=== PATIENT | male | born 1965 | race Caucasian/White ===

== ENCOUNTER 2020-12-29 16:21 | Inpatient (IN) | payer BC, SELFPAY ==
[2020-12-29] VITALS (23 sets, daily range): BP systolic 106–146; BP diastolic 63–86; PULSE 81–106; RESP 18–31; TEMP 36.7–37.6; O2SAT 84–95
--- NOTE | 2020-12-29 16:40 | W.ED.GENAD ---
Discharge Plan Disposition Patient Disposition: [facility] INPATIENT Condition: Fair Discharge Details Clinical Impression: COVID-19, Multifocal pneumonia, Hypoxia, On supplemental oxygen therapy Admit Date/Time: 12/29/20 19:50 Admit Provider: Delicia Cannon Attending Provider: Delicia Cannon Primary Care Provider: Heri Woodward ED Provider: Nicki James Discharge Data Discharge Date/Time-TO BE ENTERED AT DEPARTURE: 12/29/20 20:36 Medical Decision Making 1645 -- 55yo M w/ a h/o Type 2 diabetes, PMR who was diagnosed Covid + 6 days ago and scheduled for MAB infusion tomorrow presents for increasing dyspnea and hypoxia ~85% at home today. O2 sat 91% on RA on arrival. He has scattered wheezing throughout. He is speaking in full sentences and appears in no acute respiratory distress. Consider pneumonia or PE. Will obtain screening labs, EKG, CT chest and give DuoNeb and Solu-Medrol and fluids and reassess. Labs reviewed. White blood cell count 4. Potassium 3.2, will replete. Troponin negative. 1800 -- O2 sat 85% while patient sleeping. There may be an element of sleep apnea, will place on 1 L nasal cannula. 1914 --CT reviewed and noted diffuse multifocal pneumonia but no PE. Patient reassessed and he feels slightly better. Oxygen saturation low 90s on 2 L nasal cannula. As patient is hypoxic at rest and requiring supplemental oxygen in the setting of multifocal pneumonia, will admit for continued monitoring, antiviral treatment, nebs and IV steroids. Case discussed with hospitalist who accepts patient for admission. Discussed with nursing operations supervisor regarding admission Covid testing. As there are limited in-house Covid test and patient is a reported known positive, will reserve in-house test and obtain a send out Covid test. We will also attempt to obtain patient's outpatient positive result. Able to obtain patient's outpatient Covid positive result and copy attached to his chart. Medical Records Medical records reviewed: Yes I reviewed the patient's medical records. Imaging Data Radiologic Study: Radiologist's impression: CTA Chest With Contrast Exam date and time: 12/29/2020 4:59 PM Age: 55 years old Clinical indication: Patient HX: Cough, SOB, R/O pe/pneumonia TECHNIQUE: Imaging protocol: Computed tomographic angiography of the chest with contrast. 3D rendering (Not supervised by radiologist): MIP and/or 3D reconstructed images were created by the technologist. Radiation optimization: All CT scans at this facility use at least one of these dose optimization techniques: automated exposure control; mA and/or kV adjustment per patient size (includes targeted exams where dose is matched to clinical indication); or iterative reconstruction. Contrast material: OMNIPAQUE 350; Contrast volume: 99 ml; Contrast route: INTRAVENOUS (IV); COMPARISON: No relevant prior studies available. FINDINGS: Pulmonary arteries: Normal. No pulmonary emboli. Aorta: Unremarkable. No aortic aneurysm. No aortic dissection. Lungs: There are coarse scattered bilateral ground-glass infiltrates. Pleural spaces: Unremarkable. No pneumothorax. No pleural effusion. Heart: Unremarkable. No cardiomegaly. No pericardial effusion. Lymph nodes: Unremarkable. No enlarged lymph nodes. Liver: Fatty liver. Bones/joints: Unremarkable. No acute fracture. Soft tissues: Unremarkable. Other findings: Respiratory motion noted. IMPRESSION: 1. No evidence for pulmonary embolus. 2. Bilateral airspace disease. Pattern could be consistent with COVID-19. Clinical and laboratory correlation recommended. Lab Data Lab results reviewed: Yes I reviewed the patient's lab results. Labs: Laboratory Tests Range/Units 12/29/20 12/29/20 17:00 17:00 WBC (4.4-10.8) 10^3/uL 4.53 RBC (4.36-5.78) 10^6/uL 5.46 Hgb (13.5-17.5) g/dL 16.5 Hct (40.0-50.0) % 46.9 MCV (80-95) fL 85.9 MCH (27.0-33.0) pg 30.2 MCHC (32.0-36.0) % 35.2 RDW (11.8-14.1) % 12.2 Plt Count (130-400) 10^3/uL 126 L MPV (8.0-11.0) fL 10.5 Immature Gran % 0.0 Neutrophils % 66.0 Lymphocytes % 22.0 Atypical Lymphs % 8 Monocytes % 4.0 Eosinophils % 0.0 Basophils % 0.0 Nucleated RBC % % 0 Absolute Neutrophils (1.2-6.7) 10^3/uL 2.99 Absolute Lymphocytes (1.2-3.4) 10^3/uL 1.36 Absolute Monocytes (0.1-0.8) 10^3/uL 0.18 Absolute Eosinophils (0.0-0.7) 10^3/uL 0.00 Absolute Basophils (0.0-0.2) 10^3/uL 0.00 RBC Morphology Normal Sodium (136-145) mmol/L 130 L Potassium (3.5-5.1) mmol/L 3.2 L Chloride (98-107) mmol/L 94 L Carbon Dioxide (21.0-32.0) mmol/L 27.2 Anion Gap (3-11) mmol/L 8.8 BUN (7-18) mg/dL 10 Creatinine (0.70-1.30) mg/dL 0.9 Estimated GFR/1.73 m2 (mL/min/1.73m2) >= 60.00 Glucose (74-106) mg/dL 187 H Calcium (8.5-10.1) mg/dL 8.0 L Magnesium (1.8-2.4) mg/dL 1.9 Total Bilirubin (0.2-1.0) mg/dL 1.1 H AST (15-37) U/L 52 H ALT (16-63) U/L 49 Alkaline Phosphatase (46-116) U/L 59 Troponin I (<0.06) ng/mL < 0.05 Total Protein (6.4-8.2) g/dL 7.0 Albumin (3.4-5.0) g/dL 3.1 L ECG Data Interpretation: rate of 98, sinus, no acute ST elevation or depression. AR 169. QTc 451. HPI General Mode of arrival: ambulatory. Date/Time Provider Initiated Documentation: 12/29/20 16:23. Limitations to Documentation: no limitations. Information obtained by: patient. HPI Narrative: Pt is a 55yo M w/ a h/o diabetes and PMR who tested + for Covid 19 6 days ago and is scheduled for a MAB infusion outpatient tomorrow who presents to the ED for increasing shortness of breath and hypoxia 82-88% that has been worse with exertion today. He also admits to cough, fatigue, loss of sense of smell and taste and decreased appetite. Pt states he is not vaccinated for Covid but is interesterd in getting the vaccine once his infection resolves. Related Data Home Medications Medication Instructions Recorded Confirmed acetaminophen [Tylenol Ex Str 1,000 mg PO PRN PRN 12/29/20 12/29/20 Rapid Release] metformin 1,000 mg PO BID 12/29/20 12/29/20 prednisone 20 mg PO DAILY 12/29/20 12/29/20 simvastatin mg DAILY 12/29/20 Allergies Allergy/AdvReac Type Severity Reaction Status Date / Time chocolate flavor Allergy Swelling/Ed Unverified 12/29/20 16:30 janel General Stated Complaint: RespSymp BAO: 3 Review of Systems All systems reviewed & are unremarkable except as noted in HPI and below Constitutional Constitutional: Reports as per HPI, Denies chills and Denies fever(s) Eyes Eyes: Denies blurry vision ENT Ears, Nose, Mouth, and Throat: Denies dizziness, Denies sore throat and Denies throat swelling Cardiovascular Cardiovascular: Denies chest pain and Reports dyspnea Respiratory Respiratory: Reports cough and Reports dyspnea Gastrointestinal Gastrointestinal: Denies abdominal pain, Denies diarrhea and Denies vomiting Genitourinary Genitourinary: Denies hematuria and Denies dysuria Musculoskeletal Musculoskeletal: Denies back pain and Denies numbness Integumentary/Breasts Skin/Breast: Denies lesions and Denies rash Neurologic Neurologic: Denies dizziness, Denies localized weakness and Denies numbness Allergic/Immunologic Allergic/Immunologic: Denies throat swelling [facility] Active Problem List (Updated 12/29/20 @ 23:48 by Delicia Cannon MD) Chronic adrenal insufficiency (Acute) Pneumonia due to COVID-19 virus (Acute) Discharge planning issues (Acute) DVT prophylaxis (Acute) Hyponatremia (Acute) Hypokalemia (Acute) COVID-19 (Acute) Multifocal pneumonia (Acute) Hypoxia (Acute) On supplemental oxygen therapy (Acute) Medical History (Updated 12/29/20 @ 23:48 by Delicia Cannon MD) Obesity (BMI 30-39.9) Polymyalgia rheumatica Steroid dependent Type 2 diabetes mellitus Surgical History (Updated 12/29/20 @ 23:48 by Delicia Cannon MD) S/P right rotator cuff repair S/P tonsillectomy Social History (Updated 12/29/20 @ 23:49 by Delicia Cannon MD) Smoking/Tobacco Use Status: Current every day Tobacco Type: smokeless tobacco Smoking risk assessment performed?: Yes Alcohol Intake: current Alcohol Intake frequency: holidays/special occasions only Drug use: Rarely Substance use type: marijuana Do you feel safe at home: Yes Do you feel safe in your relationship?: Yes Exam Const General: cooperative and no acute distress Nutritional Appearance: obese morbidly obese [facility] Head: normal to inspection Face and sinus: normal facial exam Eyes General: appearance normal, both eyes and all related structures Pupils: PERRL EOM: EOM intact bilaterally Neck Neck: normal visual inspection and No submandibular swelling Lymphatic: no lymphadenopathy noted Chest Chest: normal inspection of the chest and no tenderness Resp Effort & Inspection: normal respiratory effort and able to speak in complete sentences Auscultation: wheezes scattered wheezes Cardio Rate: regular rate Rhythm: regular rhythm GI Inspection: normal to inspection Palpation: soft, not firm, not rigid and nontender Auscultation: normal bowel sounds Skin General skin exam: no rashes or lesions noted Neuro General: patient alert, patient awake and patient oriented x3 Cognition: normal cognition Speech: speech normal Motor: muscle tone normal throughout Sensory Exam: no sensory deficits noted Extrem General: normal to inspection, full ROM, capillary refill normal, no calf tenderness bilaterally and no edema Psych Appearance: grossly normal Mental Status: mental status grossly normal Speech and Movement: speech and movement normal Affect: normal affect Course Vital Signs Vital signs: Vital Signs Temperature 98.1 F 12/29/20 16:30 Pulse 98 H 12/29/20 16:30 Respiratory Rate 18 12/29/20 16:30 Blood Pressure 146/86 H 12/29/20 16:30 Pulse Oximetry 91 L 12/29/20 16:30 Temperature 98.1 F 12/29/20 16:30 Temperature Source Skin 12/29/20 16:30 Pulse 98 H 12/29/20 16:30 Respiratory Rate 18 12/29/20 16:30 Blood Pressure 146/86 H 12/29/20 16:30 Blood Pressure Position Sitting 12/29/20 16:30 Pulse Oximetry 91 L 12/29/20 16:30 Oxygen Delivery Method Room Air 12/29/20 16:30 Oxygen Flow Rate 0 12/29/20 16:30 Pain Level 10 12/29/20 16:30 Comment 12/29/20 16:30
--- NOTE | 2020-12-29 16:45 | DI.CT_ITS ---
Exam(s) CT CHEST PE CTA EXAM: CT CHEST PE CTA CLINICAL HISTORY: cough, sob, r/o PE/pneumonia. TECHNIQUE: Imaging Protocol: Axial CT angiography was performed with multi-slice acquisition and mu lti-planar and/or 3D reconstructions. CONTRAST MATERIAL: Intravenous: Omnipaque 350 Contrast volume:structured data in ml COMPARISON: No exams were available for comparison FINDINGS: CT angiography of the chest was performed with intravenous infusion of 100 cc of Omnipaque 350. There are bilateral multi focal pulmonary ground-glass and consolidative opacities. Findings are con sistent with acute multifocal pneumonia period. No pleural effusion. Tracheobronchial tree appears i ntact. No evidence of pulmonary embolic disease. Thoracic aorta is of normal diameter, no thoracic aortic an eurysm or dissection, major branch vessels appear intact. No mediastinal or hilar adenopathy. Images obtained through the upper abdomen show hepatic steatosis. There is no focal hepatic lesion. Unremarkable appearance of visualized portions of spleen pancreas adrenals, left kidney. IMPRESSION: Multifocal bilateral intrapulmonary consolidative ground-glass opacities. Findings are consistent ac [place] multifocal pneumonia. No evidence of pulmonary embolic disease. RADIATION DOSE DELIVERED: 732.61mGy.cm Total DLP 732.61mGy.cm Total DLP CTDIvol DATA REPOSITORY: All CT scans at this facility are submitted to the National Radiology Data Registry (NRDR) Dose Index Registry (DIR) with the [employer] (A[employer]). RADIATION OPTIMIZATION: All CT scans at this facility use at least one of these dose optimization te chniques: automated exposure control; mA and/or kV adjustment per patient size (includes targeted exa ms where dose is matched to clinical indication); or iterative reconstruction.
[2020-12-29 17:17] LABS: HCT 46.9 % (40.0-50.0); HGB 16.5 g/dL (13.5-17.5); MCH 30.2 pg (27.0-33.0); MCHC 35.2 % (32.0-36.0); MCV 85.9 fL (80-95); MPV 10.5 fL (8.0-11.0); Nucleated RBC 0 %; Platelet Count 126 10^3/uL (130-400); RBC 5.46 10^6/uL (4.36-5.78); RDW 12.2 % (11.8-14.1); RDW-SD 38.5 fL; WBC 4.53 10^3/uL (4.4-10.8)
[2020-12-29] MEDS: methylPREDNISolone SUCC 125 MG VIAL IVP (17:20)
[2020-12-29] MEDS: Albuterol/Ipratropium 3 ML UPD VIAL UPD (17:20)
[2020-12-29] MEDS: Normal Saline 1,000 ML 1000 ML IV (17:21)
[2020-12-29 17:34] LABS: ALT 49 U/L (16-63); AST 52 U/L (15-37); Albumin 3.1 g/dL (3.4-5.0); Alkaline Phosphatase 59 U/L (46-116); Anion Gap 8.8 mmol/L (3-11); BUN 10 mg/dL (7-18); Bilirubin, Total 1.1 mg/dL (0.2-1.0); CO2 27.2 mmol/L (21.0-32.0); CREATININE 0.9 mg/dL (0.70-1.30); Chloride 94 mmol/L (98-107); Glucose 187 mg/dL (74-106); Magnesium 1.9 mg/dL (1.8-2.4); Potassium 3.2 mmol/L (3.5-5.1); Sodium 130 mmol/L (136-145)
[2020-12-29 17:38] LABS: Absolute Lymphocyte Count 1.36 10^3/uL (1.2-3.4); Absolute Neutrophil Count 2.99 10^3/uL (1.2-6.7); Atypical Lymphocytes % 8
[2020-12-29 17:39] LABS: Absolute Monocyte Count 0.18 10^3/uL (0.1-0.8); Diff Comment Manual Differential; RBC Morphology Normal; Troponin I < 0.05 ng/mL (<0.06)
--- NOTE | 2020-12-29 17:45 | RT.EKG_ITS ---
APPROVED REPORT Exam: Resting ECG Reason for Exam: shortness of breath Patient Location: E HR:98 bpm ECG Measurements Heart Rate 98 AXIS WY 169 P 44 QRSd 105 QRS -4 QT 354 T 5 QTc 451 Conclusion Sinus rhythm...normal P axis, V-rate 60- 99
--- NOTE | 2020-12-29 17:48 | NUR.NOTE ---
Pt completed HHN tx. Reports breathing still hurts O2 sat noted 94% post treatment, lung sounds diminished throughout, deep breathing causes dry cough in patient. NS bolus continues to infuse, VSS, NAD noted. Nursing Note:
[2020-12-29] MEDS: Potassium Chloride 20 MEQ TABCR 40 MEQ PO (17:54)
[2020-12-29] MEDS: Omnipaque 350 MG/ML 100 ML BTL IV (17:58)
[2020-12-29] MEDS: Normal Saline Flush 10 ML SYR IVP ×2 (18:02→21:11)
--- NOTE | 2020-12-29 18:20 | NUR.NOTE ---
Oxygen inititated @ 2l/m via NC d/t O2 sats remaining in high 80's, dip to 84-85% when sleeping. equipment monitor phototypesetting applied and EKG done per order. Pt taken to CT via stretcher, O2 maintained, NS bolus complete, to CT with tech, NAD noted.Nursing Note:
--- NOTE | 2020-12-29 18:59 | NUR.NOTE ---
Pt return from CT, O2 & monitors maintained, no change in complaint. Pt educated on turning to side to facilitate breathing, pt verbalized understanding, call woods within reach.Nursing Note:
--- NOTE | 2020-12-29 19:20 | DI.VRAD_ITS ---
PROCEDURE INFORMATION: Exam: CTA Chest With Contrast Exam date and time: 12/29/2020 4:59 PM Age: 55 years old Clinical indication: Patient HX: Cough, SOB, R/O pe/pneumonia TECHNIQUE: Imaging protocol: Computed tomographic angiography of the chest with contrast. 3D rendering (Not supervised by radiologist): MIP and/or 3D reconstructed images were created by the technologist. Radiation optimization: All CT scans at this facility use at least one of these dose optimization techniques: automated exposure control; mA and/or kV adjustment per patient size (includes targeted exams where dose is matched to clinical indication); or iterative reconstruction. Contrast material: OMNIPAQUE 350; Contrast volume: 99 ml; Contrast route: INTRAVENOUS (IV); COMPARISON: No relevant prior studies available. FINDINGS: Pulmonary arteries: Normal. No pulmonary emboli. Aorta: Unremarkable. No aortic aneurysm. No aortic dissection. Lungs: There are coarse scattered bilateral ground-glass infiltrates. Pleural spaces: Unremarkable. No pneumothorax. No pleural effusion. Heart: Unremarkable. No cardiomegaly. No pericardial effusion. Lymph nodes: Unremarkable. No enlarged lymph nodes. Liver: Fatty liver. Bones/joints: Unremarkable. No acute fracture. Soft tissues: Unremarkable. Other findings: Respiratory motion noted. IMPRESSION: 1. No evidence for pulmonary embolus. 2. Bilateral airspace disease. Pattern could be consistent with COVID-19. Clinical and laboratory correlation recommended. Dictated and Authenticated by: Dominique Cheng MD. Ordering:KAILA Caceres MD
[2020-12-29] MEDS: ACETAMINOPHEN 1,000 MG/100 ML BTL 400 MG IVPB (20:00)
[2020-12-29 20:10] LABS: C-Reactive Protein 3.59 mg/dL (0.0-0.3)
[2020-12-29 20:39] LABS: Procalcitonin < 0.1 ng/mL
[2020-12-29] MEDS: REMDESIVIR 200 MG in Normal Saline 250 ML 250 MG IVPB (21:10)
[2020-12-29] MEDS: Atorvastatin 40 MG TAB PO (21:30)
[2020-12-29] MEDS: Melatonin 3 MG TAB PO (21:30)
[2020-12-29] MEDS: Famotidine 20 MG TAB PO (21:31)
[2020-12-29] MEDS: Ascorbic Acid 500 MG TAB 1000 MG PO (21:31)
[2020-12-29] MEDS: Enoxaparin 40 MG/0.4 ML SYR SC (21:32)
--- NOTE | 2020-12-29 22:01 | W.PM.HP.N ---
Date of service: 12/29/20 Time of Service: 22:01 Assessment and Plan Assessment and plan (1) Pneumonia due to COVID-19 virus: Status: Acute Assessment and plan: In an unvaccinated individual. With hypoxia. PE ruled out. Superimposed bacterial process is also ruled out with a negative procalcitonin. The patient was initiated on remdesivir and received methylprednisolone in the ED. Will convert this to dexamethasone. IS/acapella. Antitussives, prn albuterol inh. Supplement vitamins C, D, zinc. On Statin. Pepcid. Encourage proning/laying on the side. Predicted in-hospital mortality rate 9.1-9.9% (2) Hypoxia: Status: Acute Assessment and plan: As above (3) Hypokalemia: Status: Acute Assessment and plan: Replete. (4) Hyponatremia: Status: Acute Assessment and plan: Possibly due to acute on chronic adrenal insufficiency. The patient is now on systemic steroids at higher dose than his baseline, which should take care of it. (5) Type 2 diabetes mellitus: Assessment and plan: Anticipate steroid-induced hyperglycemia. Cover with SSI. (6) Chronic adrenal insufficiency: Status: Acute Assessment and plan: As above (7) DVT prophylaxis: Status: Acute Assessment and plan: SC lovenox (8) Discharge planning issues: Status: Acute Assessment and plan: Full code as per my discussion with the patient. Admit to [facility] with tele and continuous pulse ox monitor. History of Present Illness History of Present Illness Chief Complaint: Shortness of breath Narrative: Mr Moore is a 55 year old obese male with PMHx of NIDDM2, PMR on steroids, obesity with BMI of 36.5, who was unvaccinated against COVID-19 and was diagnosed with COVID-19 6 days ago who presented to [facility] ED today with complaints of shortness of breath at home in addition to body aches. He has a pulse ox meter at home, and his O2 sats were 83% at rest today. He was desaturating to the 80s on RA in the ED with talking or when asleep. He stated that he does not have JOHANNA. O2 sats improved to the 90s on 2L of O2. Hospitalist admission was requested. The patient states that at home, he has not had fevers/chills/runny nose/sore throat/chest pain/n/v/diarrhea. He endorses body aches like those of his PMR, cough productive of a small amount of yellowish sputum. SOB happened at rest and with activity. He states he is not vaccinated because he does not trust anyone having to do with the vaccines. He could not give me a more specific explanation than that. We discussed that J&J vaccine was more traditional, if that was his concern, and he did state he would be open to getting it. We discussed how he would need to wait 3 weeks from the moment of recovery prior to getting vaccinated. Review of Systems All systems reviewed & are unremarkable except as noted in HPI and below [facility] Active Problem List (Updated 12/29/20 @ 23:48 by Delicia Cannon MD) Chronic adrenal insufficiency (Acute) Pneumonia due to COVID-19 virus (Acute) Discharge planning issues (Acute) DVT prophylaxis (Acute) Hyponatremia (Acute) Hypokalemia (Acute) COVID-19 (Acute) Multifocal pneumonia (Acute) Hypoxia (Acute) On supplemental oxygen therapy (Acute) Medical History (Updated 12/29/20 @ 23:48 by Delicia Cannon MD) Obesity (BMI 30-39.9) Polymyalgia rheumatica Steroid dependent Type 2 diabetes mellitus Surgical History (Updated 12/29/20 @ 23:48 by Delicia Cannon MD) S/P right rotator cuff repair S/P tonsillectomy Social History (Updated 12/29/20 @ 23:49 by Delicia Cannon MD) Smoking/Tobacco Use Status: Current every day Tobacco Type: smokeless tobacco Smoking risk assessment performed?: Yes Alcohol Intake: current Alcohol Intake frequency: holidays/special occasions only Drug use: Rarely Substance use type: marijuana Do you feel safe at home: Yes Do you feel safe in your relationship?: Yes Meds Allergies and Home Medications Allergies Allergy/AdvReac Type Severity Reaction Status Date / Time chocolate flavor Allergy Swelling/Ed Unverified 12/29/20 16:30 janel Home Medications Medication Instructions Recorded Confirmed Type acetaminophen [Tylenol Ex Str 1,000 mg PO PRN PRN 12/29/20 12/29/20 History Rapid Release] metformin 1,000 mg PO BID 12/29/20 12/29/20 History prednisone 20 mg PO DAILY 12/29/20 12/29/20 History simvastatin mg DAILY 12/29/20 History Exam Narrative Exam Narrative: General: Pleasant Obese male, who is laying on his back in bed, A&Ox3, no dyspnea/tachypnea/cyanosis while on 2L of O2 during my exam Neurological: A&Ox3, no focal deficits Psychiatric: Appropriate speech pattern/content Skin: Visible skin, including on B feet, intact HEENT: Atraumatic, normocephalic, EOMI, MMM, clear oropharynx, no submandibular or cervical lymphadenopathy, no goiter or JVD Cardiovascular: RRR, no m/r/g Lungs: CTAB Gastrointestinal: soft, nontender, nondistended Genitourinary: deferred Extremities: no edema/clubbing/cyanosis BLEs, 2+ pedal pulse BLEs, no lesions on B feet Results Imaging Additional studies: CTA chest: 1. No evidence for pulmonary embolus. 2. Bilateral airspace disease. Pattern could be consistent with COVID-19. Clinical and laboratory correlation recommended. EKG: HR 97, NSR, no acute ischemia, no priors for comparison Labs Result diagrams: 12/29/20 17:00 12/29/20 17:00 Labs: Laboratory Results - last 24 hr 12/29/20 12/29/20 12/29/20 17:00 17:00 17:00 WBC 4.53 RBC 5.46 Hgb 16.5 Hct 46.9 MCV 85.9 MCH 30.2 MCHC 35.2 RDW 12.2 Plt Count 126 L MPV 10.5 Immature Gran % 0.0 Neutrophils % 66.0 Lymphocytes % 22.0 Atypical Lymphs % 8 Monocytes % 4.0 Eosinophils % 0.0 Basophils % 0.0 Nucleated RBC % 0 Absolute Neutrophils 2.99 Absolute Lymphocytes 1.36 Absolute Monocytes 0.18 Absolute Eosinophils 0.00 Absolute Basophils 0.00 RBC Morphology Normal Sodium 130 L Potassium 3.2 L Chloride 94 L Carbon Dioxide 27.2 Anion Gap 8.8 BUN 10 Creatinine 0.9 Estimated GFR/1.73 m2 >= 60.00 Glucose 187 H Calcium 8.0 L Magnesium 1.9 Total Bilirubin 1.1 H AST 52 H ALT 49 Alkaline Phosphatase 59 Troponin I < 0.05 C-Reactive Protein 3.59 H Total Protein 7.0 Albumin 3.1 L Procalcitonin < 0.1 Last Vital Signs Temp 37.1 C 12/29/20 21:19 Pulse 81 12/29/20 21:19 Resp 18 12/29/20 21:19 BP 113/72 12/29/20 21:19 Pulse Ox 95 12/29/20 21:19
[2020-12-29] MEDS: Insulin Aspart 100 UNITS/ML UNIT SC (22:36)
[2020-12-30] VITALS (14 sets, daily range): BP systolic 104–139; BP diastolic 63–88; PULSE 64–76; RESP 17–19; TEMP 36.2–37.1; O2SAT 90–95
[2020-12-30 07:40] LABS: HCT 46.6 % (40.0-50.0); HGB 16.2 g/dL (13.5-17.5); MCH 30.5 pg (27.0-33.0); MCHC 34.8 % (32.0-36.0); MCV 87.8 fL (80-95); MPV 10.6 fL (8.0-11.0); Nucleated RBC 0 %; Platelet Count 122 10^3/uL (130-400); RBC 5.31 10^6/uL (4.36-5.78); RDW 12.1 % (11.8-14.1); WBC 3.27 10^3/uL (4.4-10.8)
[2020-12-30 07:50] LABS: Prothrombin Time 10.4 sec (9.3-11.0)
[2020-12-30 07:55] LABS: Absolute Lymphocyte Count 0.82 10^3/uL (1.2-3.4); Absolute Monocyte Count 0.07 10^3/uL (0.1-0.8); Absolute Neutrophil Count 2.39 10^3/uL (1.2-6.7); Atypical Lymphocytes % 14; Bands % 2; Diff Comment Manual Differential; RBC Morphology Normal
[2020-12-30 08:02] LABS: ALT 53 U/L (16-63); AST 52 U/L (15-37); Alkaline Phosphatase 55 U/L (46-116); Anion Gap 9.5 mmol/L (3-11); BUN 11 mg/dL (7-18); Bilirubin, Direct 0.3 mg/dL (0.0-0.2); Bilirubin, Total 0.8 mg/dL (0.2-1.0); C-Reactive Protein 4.38 mg/dL (0.0-0.3); CO2 26.5 mmol/L (21.0-32.0); CREATININE 0.7 mg/dL (0.70-1.30); Calcium 8.2 mg/dL (8.5-10.1); Chloride 101 mmol/L (98-107); Creatine Kinase 131 U/L (39-308); Glucose 242 mg/dL (74-106); Magnesium 2.4 mg/dL (1.8-2.4); Potassium 3.5 mmol/L (3.5-5.1); Sodium 137 mmol/L (136-145); Total Protein 6.9 g/dL (6.4-8.2)
[2020-12-30 08:04] LABS: Hemoglobin A1C 8.8 % (<5.7)
[2020-12-30 08:09] LABS: D-Dimer 688 ng/mlFEU (<500)
[2020-12-30] MEDS: Ascorbic Acid 500 MG TAB 1000 MG PO ×2 (08:45→22:01)
[2020-12-30] MEDS: Insulin Aspart 100 UNITS/ML UNIT SC (08:46)
[2020-12-30] MEDS: Cholecalciferol (Vitamin D3) 1,000 UNIT TAB 2000 UNITS PO (08:46)
[2020-12-30] MEDS: Zinc Sulfate 220 MG TAB PO (08:46)
[2020-12-30] MEDS: Dexamethasone 10 MG/ML VIAL 6 MG IVP (08:46)
[2020-12-30] MEDS: Famotidine 20 MG TAB PO ×2 (08:46→22:01)
[2020-12-30] MEDS: guaiFENesin 600 MG TABCR PO ×2 (08:46→22:00)
[2020-12-30] MEDS: Normal Saline Flush 10 ML SYR IVP (08:47)
[2020-12-30 08:49] LABS: Ferritin > 2000 ng/mL (26-388)
--- NOTE | 2020-12-30 10:19 | INITIAL_ITS ---
- If Service Date Differs Date of service: 12/30/20 Time of Service: 10:19 Care Management Initial Assess REASON FOR HOSPITALIZATION:: Covid-19 Pneumonia with Hypoxia PAST MEDICAL HISTORY/PAST SURGICAL HISTORY:: Active Problem List (Updated 12/29/20 @ 23:48 by Delicia Cannon MD). Chronic adrenal insufficiency (Acute). Pneumonia due to COVID-19 virus (Acute). Discharge planning issues (Acute). DVT prophylaxis (Acute). Hyponatremia (Acute). Hypokalemia (Acute). COVID-19 (Acute). Multifocal pneumonia (Acute). Hypoxia (Acute). On supplemental oxygen therapy (Acute). Medical History (Updated 12/29/20 @ 23:48 by Delicia Cannon MD). Obesity (BMI 30-39.9). Polymyalgia rheumatica. Steroid dependent. Type 2 diabetes mellitus. Surgical History (Updated 12/29/20 @ 23:48 by Delicia Cannon MD). S/P right rotator cuff repair. S/P tonsillectomy PREVIOUS FUNCTIONAL STATUS/SOCIAL/FAMILY SUPPORTS:: Donn lives in [place] with his Ligia. CURRENT FUNCTIONAL STATUS:: CM tried to reach Donn by phone today due because of covid restrictions, however his phone was consistantly busy. Per nursing, Donn continues to be closely monitored. He continues to have SOB and a non productive cough. His O2 Sat is 91% 3L NC. Nursing is also going to set him up with a working phone. ADVANCE DIRECTIVES:: None on file Has patient been provided with info about the portal/API?: Yes Did the patient sign up for the portal?: No CODE STATUS:: Full Code INSURANCE COVERAGE / FINANCIAL ISSUES:: [employer] CURRENT HOME/COMMUNITY SERVICES/EQUIPMENT:: None PRIMARY CARE PHYSICIAN:: Heri Woodward PATIENT/FAMILY EDUCATION NEEDS:: Review discharge instructions, limitations and plan to follow up with community providers. ask me three. TRANSPORTATION:: Via private vehicle with family. PLAN:: Anticipate Donn will be discharged home with no new services via private vehicle with family when medically cleared by M.Maycol. RT will continue to assess his need for home O2. Will follow up with community providers and discharge plan of care as prescribed.
[2020-12-30] MEDS: Insulin Aspart 300 UNITS/3 ML PEN SC ×3 (12:21→22:22)
--- NOTE | 2020-12-30 19:54 | W.PM.PROGNOT ---
Date of Service Date of service: 12/30/20 Time of Service: 17:54 Assessment and Plan Assessment and plan (1) Pneumonia due to COVID-19 virus: Status: Acute Assessment and plan: In an unvaccinated individual. With hypoxia. PE ruled out. Superimposed bacterial process is also ruled out with a negative procalcitonin. The patient was initiated on remdesivir and received methylprednisolone in the ED. Will convert this to dexamethasone. IS/acapella. Antitussives, prn albuterol inh. Supplement vitamins C, D, zinc. On Statin. Pepcid. Encourage proning/laying on the side. Predicted in-hospital mortality rate 9.1-9.9% Now on 3L with O2 saturations of 89-91%. He doesn't note SOA with ambulating in the room. (2) Hypoxia: Status: Acute Assessment and plan: As above (3) Hypokalemia: Status: Acute Assessment and plan: Replete. Now 3.5. (4) Hyponatremia: Status: Acute Assessment and plan: Possibly due to acute on chronic adrenal insufficiency. The patient is now on systemic steroids at higher dose than his baseline, which should take care of it. Na now 137. (5) Type 2 diabetes mellitus: Assessment and plan: Anticipated steroid-induced hyperglycemia. Glucose 252, 243. Cover with SSI. (6) Chronic adrenal insufficiency: Status: Acute Assessment and plan: As above (7) DVT prophylaxis: Status: Acute Assessment and plan: SC lovenox (8) Discharge planning issues: Status: Acute Assessment and plan: Full code per pt. Admitted to [facility] with tele and continuous pulse ox monitor. Objective Last Vital Signs Temp 36.5 C 12/30/20 12:19 Pulse 75 12/30/20 15:30 Resp 19 12/30/20 12:19 BP 126/86 12/30/20 12:19 Pulse Ox 91 L 12/30/20 16:30 Laboratory Results - last 24 hr 12/29/20 12/29/20 12/30/20 17:00 17:00 06:45 WBC RBC Hgb Hct MCV MCH MCHC RDW Plt Count MPV Immature Gran % Neutrophils % Band Neutrophils % Lymphocytes % Atypical Lymphs % Monocytes % Eosinophils % Basophils % Nucleated RBC % Absolute Neutrophils Absolute Lymphocytes Absolute Monocytes Absolute Eosinophils Absolute Basophils RBC Morphology PT INR D-Dimer Sodium Potassium Chloride Carbon Dioxide Anion Gap BUN Creatinine Estimated GFR/1.73 m2 Glucose Hemoglobin A1c 8.8 H Calcium Magnesium Ferritin Total Bilirubin Conjugated Bilirubin AST ALT Alkaline Phosphatase Creatine Kinase C-Reactive Protein 3.59 H Total Protein Albumin Procalcitonin < 0.1 12/30/20 12/30/20 12/30/20 06:45 06:45 06:45 WBC 3.27 L RBC 5.31 Hgb 16.2 Hct 46.6 MCV 87.8 MCH 30.5 MCHC 34.8 RDW 12.1 Plt Count 122 L MPV 10.6 Immature Gran % 0.0 Neutrophils % 71.0 Band Neutrophils % 2 Lymphocytes % 11.0 Atypical Lymphs % 14 Monocytes % 2.0 Eosinophils % 0.0 Basophils % 0.0 Nucleated RBC % 0 Absolute Neutrophils 2.39 Absolute Lymphocytes 0.82 L Absolute Monocytes 0.07 L Absolute Eosinophils 0.00 Absolute Basophils 0.00 RBC Morphology Normal PT 10.4 INR 1.0 D-Dimer 688 H Sodium 137 Potassium 3.5 Chloride 101 Carbon Dioxide 26.5 Anion Gap 9.5 BUN 11 Creatinine 0.7 Estimated GFR/1.73 m2 >= 60.00 Glucose 242 H Hemoglobin A1c Calcium 8.2 L Magnesium 2.4 Ferritin > 2000 H Total Bilirubin 0.8 Conjugated Bilirubin 0.3 H AST 52 H ALT 53 Alkaline Phosphatase 55 Creatine Kinase 131 C-Reactive Protein 4.38 H Total Protein 6.9 Albumin 3.0 L Procalcitonin
[2020-12-30] MEDS: Melatonin 3 MG TAB PO (22:00)
[2020-12-30] MEDS: Atorvastatin 40 MG TAB PO (22:01)
[2020-12-30] MEDS: Enoxaparin 40 MG/0.4 ML SYR SC (22:02)
[2020-12-31] VITALS (10 sets, daily range): BP systolic 100–128; BP diastolic 60–79; PULSE 50–82; RESP 16–24; TEMP 36.6–37.3; O2SAT 89–97
[2020-12-31 02:01] LABS: Vitamin D 25 Total 9.3 ng/mL (30-100)
[2020-12-31] MEDS: Insulin Aspart 300 UNITS/3 ML PEN SC ×4 (07:51→21:26)
[2020-12-31] MEDS: Dexamethasone 10 MG/ML VIAL 6 MG IVP (07:53)
[2020-12-31] MEDS: Zinc Sulfate 220 MG TAB PO (07:53)
[2020-12-31] MEDS: guaiFENesin 600 MG TABCR PO ×2 (07:53→21:25)
[2020-12-31] MEDS: Ascorbic Acid 500 MG TAB 1000 MG PO ×2 (07:53→21:24)
[2020-12-31] MEDS: Cholecalciferol (Vitamin D3) 1,000 UNIT TAB 2000 UNITS PO (07:53)
[2020-12-31] MEDS: Famotidine 20 MG TAB PO ×2 (07:53→21:24)
--- NOTE | 2020-12-31 11:06 | PGE_ITS ---
Date of Service Date of service: 12/31/20 Time of Service: 11:07 Assessment and Plan Assessment and plan (1) Pneumonia due to COVID-19 virus: Status: Acute Assessment and plan: In an unvaccinated individual. With hypoxia. PE ruled out. Superimposed bacterial process is also ruled out with a negative procalcitonin. The patient was initiated on remdesivir and received methylprednisolone in the ED. Will convert this to dexamethasone. IS/acapella. Antitussives, prn albuterol inh. Supplement vitamins C, D, zinc. On Statin. Pepcid. Encourage proning/laying on the side. Predicted in-hospital mortality rate 9.1-9.9% Now on 3L with O2 saturations of 89-91%. He doesn't note SOA with ambulating in the room. (2) Hypoxia: Status: Acute Assessment and plan: As above (3) Hypokalemia: Status: Acute Assessment and plan: Replete. Now 3.5. (4) Hyponatremia: Status: Acute Assessment and plan: Possibly due to acute on chronic adrenal insufficiency. The patient is now on systemic steroids at higher dose than his baseline, which should take care of it. Na now 137. (5) Type 2 diabetes mellitus: Assessment and plan: Anticipated steroid-induced hyperglycemia. Glucose 252, 243. Cover with SSI. Add lantus QHS (6) Chronic adrenal insufficiency: Status: Acute Assessment and plan: As above (7) DVT prophylaxis: Status: Acute Assessment and plan: SC lovenox (8) Discharge planning issues: Status: Acute Assessment and plan: Full code per pt. Admitted to [facility] with tele and continuous pulse ox monitor. Subjective Subjective Patient reports: feels better and afebrile; denies diarrhea, nausea, vomiting and shortness of breath Interval history since last seen: No SOA with ambulating in the room No appetite this AM. Has diminished sense of taste. Exam Narrative Exam Narrative: General: Pleasant Obese male, who is laying on his right side in bed, A&Ox3, no dyspnea/tachypnea/cyanosis while on 3L of O2 during my exam Neurological: A&Ox3, no focal deficits Psychiatric: Appropriate speech pattern/content Skin: Visible skin, including on B feet, intact HEENT: Atraumatic, normocephalic, EOMI, MMM, clear oropharynx, no submandibular or cervical lymphadenopathy, no goiter or JVD Cardiovascular: RRR, no m/r/g Lungs: CTAB Gastrointestinal: soft, nontender, nondistended Genitourinary: deferred Extremities: no edema/clubbing/cyanosis BLEs, 2+ pedal pulse BLEs, no lesions on B feet Objective Last Vital Signs Temp 36.8 C 12/31/20 07:44 Pulse 82 12/31/20 07:44 Resp 24 12/31/20 07:44 BP 108/71 12/31/20 07:44 Pulse Ox 89 L 12/31/20 07:44 Laboratory Results - last 24 hr 12/30/20 06:45 25-OH Vitamin D Total 9.3 L
[2020-12-31] MEDS: Normal Saline 500 ML 30 ML IV (21:24)
[2020-12-31] MEDS: Enoxaparin 40 MG/0.4 ML SYR SC (21:25)
[2020-12-31] MEDS: Atorvastatin 40 MG TAB PO (21:25)
[2020-12-31] MEDS: Melatonin 3 MG TAB PO (21:25)
[2020-12-31] MEDS: Insulin Glargine 300 UNITS/3 ML PEN 10 UNITS SC (21:26)
[2020-12-31 22:19] LABS: COVID-19 RT-PCR UVMMC Result Positive (Negative)
[2021-01-01] VITALS (11 sets, daily range): BP systolic 107–143; BP diastolic 69–92; PULSE 53–76; RESP 12–16; TEMP 35.8–36.6; O2SAT 85–97
[2021-01-01] MEDS: Ascorbic Acid 500 MG TAB 1000 MG PO ×2 (08:57→19:42)
[2021-01-01] MEDS: Cholecalciferol (Vitamin D3) 1,000 UNIT TAB 2000 UNITS PO (08:58)
[2021-01-01] MEDS: guaiFENesin 600 MG TABCR PO ×2 (08:58→19:42)
[2021-01-01] MEDS: Insulin Aspart 300 UNITS/3 ML PEN SC ×4 (08:58→22:13)
[2021-01-01] MEDS: Famotidine 20 MG TAB PO ×2 (08:58→19:42)
[2021-01-01] MEDS: Dexamethasone 10 MG/ML VIAL 6 MG IVP (08:58)
[2021-01-01] MEDS: Zinc Sulfate 220 MG TAB PO (08:59)
--- NOTE | 2021-01-01 09:46 | PDOC.CMPRO ---
- If Service Date Differs Date of service: 01/01/21 Time of Service: 09:46 Care Management Progress Note S/O: Donn continues to be closely monitored. He remains on O2 and early this morning his Sat was 94% on 2.5 L NC. CM is unable to meet with Donn in person due to Covid restrictions and attempts at reaching him by telephone have been unsuccessful as the phone in the room is consistently busy. Per nursing, Donn is proning and continues to improve. A: Donn is a 55 year old male admitted to [facility] on 12/29/20 for Covid-19 pneumonia with hypoxia. P: Anticipate Donn will be discharged home when medically cleared by provider. RT continues to assess his need for home O2. He will follow up with his PCP and discharge plan of care as directed. He will be driven home via private vehicle by family when ready. CM will continue to follow.
--- NOTE | 2021-01-01 14:55 | W.PM.PROGNOT ---
Date of Service Date of service: 01/01/21 Time of Service: 14:55 Assessment and Plan Assessment and plan (1) Pneumonia due to COVID-19 virus: Status: Acute Assessment and plan: In an unvaccinated individual. With hypoxia. PE ruled out. Superimposed bacterial process is also ruled out with a negative procalcitonin. The patient was initiated on remdesivir and received methylprednisolone in the ED. Will convert this to dexamethasone. IS/acapella. Antitussives, prn albuterol inh. Supplement vitamins C, D, zinc. On Statin. Pepcid. Encourage proning/laying on the side. Predicted in-hospital mortality rate 9.1-9.9% Now on 1L with O2 saturations of 95% He doesn't note SOA with ambulating in the room. Potential d/c tomorrow. (2) Hypoxia: Status: Acute Assessment and plan: As above (3) Hypokalemia: Status: Acute Assessment and plan: Repleted to 3.5 BMP in AM. (4) Hyponatremia: Status: Acute Assessment and plan: Possibly due to acute on chronic adrenal insufficiency. The patient is now on systemic steroids at higher dose than his baseline, which should take care of it. Na now 137. (5) Type 2 diabetes mellitus: Assessment and plan: Anticipated steroid-induced hyperglycemia. Glucose 252, 243 yesterday; added nightly lantus; today glucose levels of 171 and 213. Cover with SSI. Monitor. (6) Chronic adrenal insufficiency: Status: Acute Assessment and plan: As above (7) DVT prophylaxis: Status: Acute Assessment and plan: SC lovenox (8) Discharge planning issues: Status: Acute Assessment and plan: Full code per pt. Admitted to [facility] with tele and continuous pulse ox monitor. Subjective Subjective Patient reports: no new complaints, feels better, tolerating a regular diet (poor appetite d/t alteration of taste), shortness of breath and afebrile; denies nausea and vomiting Exam Narrative Exam Narrative: Gen: Pleasant, conversational w/o SOA with speaking. O2 saturation 95% on 1L NC at this time. Afebrile. Objective Last Vital Signs Temp 36.2 C L 01/01/21 09:05 Pulse 63 01/01/21 09:05 Resp 12 01/01/21 11:33 BP 123/79 01/01/21 09:05 Pulse Ox 95 01/01/21 11:33 Laboratory Results - last 24 hr 12/29/20 19:25 SARS-CoV-2 (PCR) Positive A* Nasopharyn COVID-19 PCR Not Applicable Ref Test Perform [id number] [facility]
[2021-01-01 17:38] LABS: D-Dimer 378 ng/mlFEU (<500)
[2021-01-01 17:43] LABS: C-Reactive Protein 1.46 mg/dL (0.0-0.3)
[2021-01-01] MEDS: Atorvastatin 40 MG TAB PO (19:42)
[2021-01-01] MEDS: Normal Saline Flush 10 ML SYR IVP (19:42)
[2021-01-01] MEDS: Enoxaparin 40 MG/0.4 ML SYR SC (22:12)
[2021-01-01] MEDS: Insulin Glargine 300 UNITS/3 ML PEN 10 UNITS SC (22:12)
[2021-01-01] MEDS: Melatonin 3 MG TAB PO (22:15)
[2021-01-02] VITALS (7 sets, daily range): BP systolic 120–130; BP diastolic 69–72; PULSE 44–76; RESP 14–16; TEMP 35.6–36.4; O2SAT 89–95
[2021-01-02 08:22] LABS: Anion Gap 8.7 mmol/L (3-11); BUN 14 mg/dL (7-18); C-Reactive Protein 0.96 mg/dL (0.0-0.3); CO2 26.3 mmol/L (21.0-32.0); CREATININE 0.8 mg/dL (0.70-1.30); Calcium 8.4 mg/dL (8.5-10.1); Chloride 105 mmol/L (98-107); Glucose 296 mg/dL (74-106); Potassium 3.9 mmol/L (3.5-5.1); Sodium 140 mmol/L (136-145)
[2021-01-02] MEDS: Dexamethasone 10 MG/ML VIAL 6 MG IVP (08:38)
[2021-01-02] MEDS: guaiFENesin 600 MG TABCR PO (08:38)
[2021-01-02] MEDS: Ascorbic Acid 500 MG TAB 1000 MG PO (08:38)
[2021-01-02] MEDS: Cholecalciferol (Vitamin D3) 1,000 UNIT TAB 2000 UNITS PO (08:38)
[2021-01-02] MEDS: Insulin Aspart 300 UNITS/3 ML PEN SC ×2 (08:38→12:35)
[2021-01-02] MEDS: Famotidine 20 MG TAB PO (08:38)
[2021-01-02] MEDS: Zinc Sulfate 220 MG TAB PO (08:39)
[2021-01-02 08:40] LABS: D-Dimer 387 ng/mlFEU (<500)
--- NOTE | 2021-01-02 14:10 | DSE_ITS ---
Date of service: 01/02/21 Time of Service: 14:10 DS: Diagnosis Discharge Diagnosis (1) Pneumonia due to COVID-19 virus: Status: Acute Asessment and Plan: No further treatment necessary at this time. Patient should remain in respiratory isolation at home for a minimum of 10 days from the onset of symptoms Which according to the patient was around December 21 or . Patient completed 5 days of Decadron and 4 days of remdesivir. Patient is encouraged to get a COVID-19 vaccine in 3 to 4 weeks post recovery. Patient is encouraged to continue use of his incentive spirometer and Acapella for respira tory toiletry. (2) Hypoxia: Status: Resolved (3) Hypokalemia: Status: Resolved (4) Hyponatremia: Status: Resolved (5) Type 2 diabetes mellitus: (6) Chronic adrenal insufficiency: Status: Chronic Asessment and Plan: Resume your previous dose of prednisone. Discharge Plan Disposition Patient Disposition: HOME Condition: Improving Discharge Details Reason For Visit: COVID-19 pneumonia with hypoxia Admit Date/Time: 12/29/20 19:50 Admit Provider: Delicia Cannon Attending Provider: Delicia Cannon Primary Care Provider: Heri Woodward Hospital Course Hospital Course: Patient is a 55-year-old obese (BMI 36.5 kg/m?), with a history of type 2 diabetes mellitus, chronically on steroids due to adrenal insufficiency, who was diagnosed with COVID-19 6 days ago and is unvaccinated against COVID-19 who now presented to the emergency department on December 29, 2020 with complaints of increasing shortness of breath along with body aches loss of sense of taste and smell but no associated fever or chills sore throat runny nose chest pain nausea vomiting or diarrhea. Work-up in the emergency department included routine labs including CBC, D-dimer, CMP, ferritin, CRP, vitamin D level, as well as nasal swab for SARS-CoV-2 PCR testing. Patient tested positive for SARS-CoV-2. CBC demonstrated normal total white count of 4500 with a mild thrombocytopenia of 126,000 and an absolute lymphopenia of 820. Hemoglobin hematocrit were normal at 16.2 g hematocrit 46%. CMP showed hyponatremia of 130 and hypokalemia 3.2 with normal BUN of 10 and creatinine 0.9. LFTs were mildly elevated with an AST of 52 but normal ALT and alkaline phosphatase and bilirubin and a normal CK. Troponin I was less than 0.05. CRP was mildly elevated 3.59 but with treatment for his Covid came down to 0.96. Procalcitonin was less than 0.1. CT of his chest was performed it was found to have multifocal bilateral consolidative groundglass opacities with no evidence for PE. Patient was admitted to the hospital and started on Decadron 10 mg IV initially and then Decadron 6 mg IV daily he was put on Remdesivir and given 200 mg IV initially and placed on 100 mg IV daily he was placed on enoxaparin 40 mg subcutaneously for DVT prophylaxis and placed on Pepcid 20 mg p.o. twice daily for GI protection. He was also placed on atorvastatin 40 mg. He was ordered albuterol HFA 2 puffs every 4 hours as needed and he was encouraged to perform incentive spirometry and Acapella for pulmonary toiletry as well as advised to perform proning procedures to improve his gas exchange. Over the next 4 days his oxygen requirements improved remarkably. Initially he was placed on a nasal cannula and required up to 3 L/min per nasal cannula. His admission oxygen saturation had been around 89% but with supplemental oxygen he was maintaining his saturation in the mid 90s. On the day of discharge he been on room air throughout the day and respiratory therapy ambulated him with no evidence for desaturation. Patient was discharged home in markedly improved condition. He is advised to get a COVID-19 vaccine 3 to 4 weeks post recovery. He is advised to remain in respiratory isolation through the weekend or minimum of 10 days from the onset of his symptoms. He is also advised that he should wear a mask when he is out in public. Home Meds and New Rx's Prescriptions: Continued prednisone 20 mg Tablet 20 mg PO DAILY RF: 0 acetaminophen 500 mg Tablet 1,000 mg PO PRN PRNRF: 0 simvastatin 5 mg Tablet DAILY RF: 0 metformin 1,000 mg Tablet 1,000 mg PO BID RF: 0 Discharge Instructions Instructions: Droplet Precautions (ED), COVID-19 (Coronavirus Disease 2019) (DC), COVID-19 and Chronic Health Conditions (DC), COVID-19: Slow the Coronavirus Spread (DC), Face Coverings (Masks) and COVID-19 (DC) Additional Instructions: You have just been treated for COVID-19 pneumonia and were treated w/ Remdesivir (an antiviral agent) and dexamethasone (high potency corticosteroid). Your oxyge n levels have recovered. However, you will still have inflammatory changes in your lungs and it will take several weeks for this to heal. You may have some fpc effects from COVID-19 and should follow up with your primary care provider. You should remain in [place] for 10 to 14 days after your first onset of your symptoms of your infection. You should wear a mask when you are out in public (for your own protection). While it is still possible for your to catch COVID-19 again, your own natural immune response may provide some protection but do not let this lull you into a false sense of security. Please get a vaccine to protect yourself from future COVID-19 outbreaks and wear your mask. Continue to use your incentive spirometer and acapella respiratory devices for the next week. This will help open the alveoli (air sacs) in the lower lobes of your lungs and improve air exchange. Get a flu shot if you have not already done so. Stand Alone Forms: Nursing Discharge Form Referrals: Eduardo Woodward MD [ [facility]AFF PHYSICIAN] - (Please call Monday to make a follow up appointment for 2 weeks.) Activity:: Activity as Tolerated Equipment/Supplies:: No Equipment Needed Diet:: Carb Counting Discharge Orders Discharge Orders: Discharge Order (Routine); Ordered 01/02/21 Ordered By: Miko Lofton Discharge Data Discharge Date/Time-TO BE ENTERED AT DEPARTURE: 01/02/21 16:23 DS: Summary Time Spent with Patient providing and/or coordinating discharge services: Less than 30 minutes Status at Discharge Functional status at discharge: independent ambulation Overall status at discharge: patient is progressing back to baseline Mental Status: mental status grossly normal Speech and Movement: speech and movement normal Mood: congruent mood Affect: normal affect Exam Narrative Exam Narrative: Morbidly obese male who is fully dressed sitting up in his bed in no respiratory distress. He is able to talk in complete paragraphs without dyspnea. He is able to walk around his room without getting dyspneic. His lungs reveal faint fine bibasilar rales without rhonchi or wheezing his heart is regular rate and rhythm. His extremities are without edema Psych Mental Status: mental status grossly normal Speech and Movement: speech and movement normal Mood: congruent mood Affect: normal affect DS: Data Vitals/I&O Vitals and I&O: Vital Signs Temperature 35.6 C L 01/02/21 08:44 Temperature Source Tympanic 01/02/21 08:44 Pulse 59 L 01/02/21 08:44 Pulse Rhythm Regular 01/02/21 10:10 Pulse 99 H 12/29/20 19:00 Respiratory Rate 14 01/02/21 10:10 Respiratory Effort Non-Labored 01/02/21 10:10 Respiratory Depth Normal 01/02/21 10:10 Respiratory Pattern Normal 01/02/21 10:10 Blood Pressure 130/72 01/02/21 08:44 Blood Pressure Mean 92 12/29/20 18:49 Blood Pressure Position Sitting 12/29/20 16:30 Pulse Oximetry 91 L 01/02/21 10:10 Oxygen Delivery Method Room Air 01/02/21 10:10 Oxygen Flow Rate 0 01/02/21 10:10 Pain Level 0 01/02/21 10:10 Comment 01/01/21 19:45 Intake & Output 01/01/21 01/02/21 01/02/21 23:59 11:59 23:59 Intake Total 410 / 410 Balance 410 / -40 Intake: IV Oral 400 / 400 Other: Urine Color Yellow Urine Appearance Clear Clear Comment Pt reports voiding to toilet without any issues. Urine unmeasured. Voiding Methods Toilet Data Completed and Pending Labs on day of discharge: Labs from last 24 hours 01/02/21 01/02/21 01/01/21 07:37 07:37 16:30 D-Dimer 387 378 Sodium 140 Potassium 3.9 Chloride 105 Carbon Dioxide 26.3 Anion Gap 8.7 BUN 14 Creatinine 0.8 Estimated GFR/1.73 m2 >= 60.00 Glucose 296 H Calcium 8.4 L C-Reactive Protein 0.96 H 01/01/21 16:30 D-Dimer Sodium Potassium Chloride Carbon Dioxide Anion Gap BUN Creatinine Estimated GFR/1.73 m2 Glucose Calcium C-Reactive Protein 1.46 H [facility] Active Problem List Chronic adrenal insufficiency (Acute) Pneumonia due to COVID-19 virus (Acute) Hyponatremia (Acute) Hypokalemia (Acute) COVID-19 (Acute) Multifocal pneumonia (Acute) Hypoxia (Acute) On supplemental oxygen therapy (Acute) Medical History Obesity (BMI 30-39.9) Polymyalgia rheumatica Steroid dependent Type 2 diabetes mellitus Surgical History S/P right rotator cuff repair S/P tonsillectomy Social History Smoking/Tobacco Use Status: Current every day Tobacco Type: smokeless tobacco Smoking risk assessment performed?: Yes Alcohol Intake: current Alcohol Intake frequency: holidays/special occasions only Drug use: Rarely Substance use type: marijuana Do you feel safe at home: Yes Do you feel safe in your relationship?: Yes
--- NOTE | 2021-01-02 15:07 | CMDISCH_ITS ---
- If Service Date Differs Date of service: 01/02/21 Time of Service: 15:07 LACE Index Scoring Tool - Questions: Length of Stay (in days): 4 - 6 Acuity (Admit via E.D.?): Yes Comorbidities: Diabetes w/o Complication E.D. Visits: 1 - Answers: Total Score: 9 Risk of Readmission: Low Risk Care Management Discharge Reason for Hospitalization: Covid-19 Pneumonia with Hypoxia Discharge Plan: Donn is discharged home with no new services. He will follow up with his PCP and plan of care as prescribed. He is transported home via private vehicle by family. Patient/Family Education Needs: Review discharge instructions, including l imitations and follow up plan of care; discuss Ask Me Three and self management.
== END 2021-01-02 16:23 | disposition home or self-care (01) | DRG 177 ==
LOC: ER 19:49 → MS 20:36
PROVIDERS: Family Medicine; Admitting Provider Internal Medicine; Emergency Provider Physician Assistant; PCP Internal Medicine Hematology & Oncology; Visit Provider Internal Medicine
DX: U07.1 COVID-19 (principal); J12.82 Pneumonia due to coronavirus disease 2019; E87.1 Hypo-osmolality and hyponatremia; E27.40 Unspecified adrenocortical insufficiency; R09.02 Hypoxemia; E87.6 Hypokalemia; E11.9 Type 2 diabetes mellitus without complications; M35.3 Polymyalgia rheumatica; Z79.52 Long term (current) use of systemic steroids; E66.9 Obesity, unspecified; Z68.36 Body mass index [BMI] 36.0-36.9, adult; Z79.84 Long term (current) use of oral hypoglycemic drugs
CPT/HCPCS: 36415; 71275; 80048; 80053; 80076; 82306; 82550; 84145; 93005; 94640; 96361; 96374; 99285; J1650; U0003; 82728; 83036; 83735; 84484; 85025; 85379; 85610; 86140; 93010; 99223; 99232; 99233; 99238; J0131; J1100; J2930; J3490; J7620

== ENCOUNTER 2021-01-16 11:06 | Emergency (ER) | payer BC, SELFPAY ==
[2021-01-16 11:10] VITALS: BP 134/76; PULSE 92; RESP 16; TEMP 36.6; O2SAT 95
--- NOTE | 2021-01-16 11:21 | ED.GENADUL_ITS ---
Discharge Plan Disposition Patient Disposition: HOME Condition: Improving Discharge Details Clinical Impression: Acute suppurative otitis media of left ear with spontaneous rupture of tympanic membrane Primary Care Provider: Heri Woodward ED Provider: Agustin Medina Home Meds and New Rx's Prescriptions: New amoxicillin-pot clavulanate 875-125 mg tablet 1 tab PO BID 10 Days Qty: 20 RF: 0 Continued prednisone 20 mg Tablet 20 mg PO DAILY RF: 0 acetaminophen 500 mg Tablet 1,000 mg PO PRN PRNRF: 0 simvastatin 5 mg Tablet 5 mg PO DAILY RF: 0 metformin 1,000 mg Tablet 1,000 mg PO BID RF: 0 fluticasone propion-salmeterol [Advair Diskus] 250-50 mcg/dose Blister With Device 1 inh INHALATION BID RF: 0 Discharge Instructions Instructions: Ear Infection (ED) Additional Instructions: Stop using the homeopathic eardrops. May continue Tylenol and ibuprofen as needed for discomfort. Keep area clean and dry, no swimming. We will ask care management to arrange a follow-up for you in otolaryngology clinic. I recommend you take an [id number] probiotic once daily in the middle of the day while taking the antibiotic. Take the antibiotics until they are finished. Return to the ER for any acute concerns. Medical Decision Making 55-year-old male with 3 to 4 days of left ear pain, drainage, notes that he has been using a homeopathic eardrop with minimal relief. He is notably feeling improved since having an ICU admission for multifocal COVID-19 pneumonia. He is not on oxygen nor does he have any chronic respiratory symptoms. Patient has evidence of a ruptured left acute otitis media. I will place him on Augmentin. He will stop using the homeopath drops. We will ask for a follow-up in otolaryngology clinic to ensure resolution. HPI General Mode of arrival: ambulatory . Date/Time Provider Initiated Documentation: 01/16/21 11:07 . Limitations to Documentation: no limitations . Information obtained by: patient . History of Present Illness 55 year old M presents to the emergency department with the chief complaint of 3 to 4 days left ear pain, described as moderate, Quality is described as dull and constant, and is localized to the left. Patient reports no radiation. Patient started experiencing this day(s) and it has been constant. No r elieving factors improve symptom(s), No exacerbating factors reported . Patient notes denies fever/chills and headaches. Patient did receive the following treatments prior to arrival, other (Tylenol) Related Data Home Medications Medication Instructions Recorded Confirmed acetaminophen 1,000 mg PO PRN PRN 12/29/20 01/16/21 metformin 1,000 mg PO BID 12/29/20 01/16/21 prednisone 20 mg PO DAILY 12/29/20 01/16/21 simvastatin 5 mg PO DAILY 12/29/20 01/16/21 amoxicillin-pot clavulanate 1 tab PO BID 10 Days #20 tab 01/16/21 fluticasone propion-salmeterol 1 inh INHALATION BID 01/16/21 01/16/21 [Advair Diskus] Previous Rx's Medication Instructions Recorded amoxicillin-pot clavulanate 1 tab PO BID 10 Days #20 tab 01/16/21 Allergies Allergy/AdvReac Type Severity Reaction Status Date / Time chocolate flavor Allergy Swelling/Ed Unverified 01/16/21 11:17 janel fentanyl AdvReac prolonged Unverified 01/16/21 11:20 low Sao2 General Stated Complaint: EarProblem BAO: 4 Review of Systems Narrative: No persistent cough or difficulty breathing. Has been using eardro ps. Mild left ear drainage. 6 systems reviewed and otherwise negative. PFSH All Active Problems (Updated 01/16/21 @ 11:23 by Agustin Medina MD) Acute suppurative otitis media of left ear with spontaneous rupture of tympanic membrane (Acute) Chronic adrenal insufficiency (Chronic) Pneumonia due to COVID-19 virus (Acute) COVID-19 (Acute) Multifocal pneumonia (Acute) On supplemental oxygen therapy (Acute) Medical History Obesity (BMI 30-39.9) Polymyalgia rheumatica Steroid dependent Type 2 diabetes mellitus Surgical History S/P right rotator cuff repair S/P tonsillectomy Social History Smoking/Tobacco Use Status: Current every day Tobacco Type: smokeless tobacco Smoking risk assessment performed?: Yes Alcohol Intake: current Alcohol Intake frequency: holidays/special occasions only Drug use: Rarely Substance use type: marijuana Do you feel safe at home: Yes Do you feel safe in your relationship?: Yes Exam Narrative Exam Narrative: GEN: awake, alert, oriented 3. Pleasant, well groomed, interactive. HEAD: Normocephalic, atraumatic ENT: Mucous membranes moist, oropharynx unremarkable, left tympanic membrane is ruptured, erythematous, right tympanic membrane will external ear exam unremarkable EYES: PERRL, EOMI NECK: Full ROM, no NELLI, no menigismus CHEST/RESP: Nontender, clear to auscultation bilateral, no wheeze/rhonchi/rales CARDIOVASCULAR: RRR, no murmur, rub fatoumata. 2+ Rad pulse bilateral Neuro: Grossly normal neurologic exam, conversant, interactive. Psych: Speech fluent, thoughts congruent, affect normal Course Vital Signs Vital signs: Vital Signs Temperature 36.6 C 01/16/21 11:10 Pulse 92 H 01/16/21 11:10 Respiratory Rate 16 01/16/21 11:10 Blood Pressure 134/76 01/16/21 11:10 Pulse Oximetry 95 01/16/21 11:10 Temperature 36.6 C 01/16/21 11:10 Temperature Source Temporal Artery Scan 01/16/21 11:10 Pulse 92 H 01/16/21 11:10 Respiratory Rate 16 01/16/21 11:10 Respiratory Effort Non-Labored 01/16/21 11:15 Blood Pressure 134/76 01/16/21 11:10 Blood Pressure Position Sitting 01/16/21 11:10 Pulse Oximetry 95 01/16/21 11:10 Oxygen Delivery Method Room Air 01/16/21 11:10 Oxygen Flow Rate 0 01/16/21 11:10 Pain Level 5 01/16/21 11:10
--- NOTE | 2021-01-16 11:33 | NUR.NOTE ---
Nursing Note: Referral faxed to ENT-Dr. Joseph for follow up of ruptured left otitis media in 1 to 2 weeks. Reyna Horton
--- NOTE | 2021-01-16 16:52 | NUR.NOTE ---
Nursing Note: called stating that the patient is in so much pain that he cannot lie down, sit, etc. Per Dr. Medina, try what they can at home, it will take 24 hrs for the antibiotics to kick in, if he cannot stand it he can return to the ED. stated she will be bringing him back. Reyna Horton
== END 2021-01-16 11:30 | disposition home or self-care (01) ==
PROVIDERS: Emergency Provider Emergency Medicine; PCP Internal Medicine Hematology & Oncology
DX: H66.012 Acute suppurative otitis media with spontaneous rupture of ear drum, left ear (principal)
CPT/HCPCS: 99283

== ENCOUNTER 2021-01-16 17:25 | Emergency (ER) | payer BC, SELFPAY ==
[2021-01-16 17:29] VITALS: TEMP 36.4; O2SAT 93
[2021-01-16] MEDS: HYDROmorphone 2 MG/ML VIAL 1 MG IM (17:40)
--- NOTE | 2021-01-16 17:41 | ED.GENADUL_ITS ---
Discharge Plan Disposition Patient Disposition: HOME Condition: Improving Discharge Details Clinical Impression: Acute suppurative otitis media of left ear with spontaneous rupture of tympanic membrane Primary Care Provider: Heri Woodward ED Provider: Agustin Medina Home Meds and New Rx's Prescriptions: Continued prednisone 20 mg Tablet 20 mg PO DAILY RF: 0 acetaminophen 500 mg Tablet 1,000 mg PO PRN PRNRF: 0 simvastatin 5 mg Tablet 5 mg PO DAILY RF: 0 metformin 1,000 mg Tablet 1,000 mg PO BID RF: 0 fluticasone propion-salmeterol [Advair Diskus] 250-50 mcg/dose Blister With Device 1 inh INHALATION BID RF: 0 amoxicillin-pot clavulanate 875-125 mg tablet 1 tab PO BID 10 Days Qty: 20 RF: 0 Discharge Instructions Instructions: Ear Infection (ED) Additional Instructions: No more Tylenol today or tomorrow. Ibuprofen as needed for pain with oxycodone as needed for severe or breakthrough pain. Continue Augmentin as previously described. As previously discussed, we will place a referral to otolaryngology clinic for you for recheck/follow-up. Medical Decision Making 55-year-old male seen by me earlier in the day for left ear pain with acute ruptured left otitis media for which she was placed on Augmentin. He returns now due to ongoing significant pain that is worse with lying on the ear. He took Tylenol at home without amelioration. He arrives to ER stable and interactive he is afebrile. Given IM Dilaudid with improvement. Will offer narcotic analgesia for home for which he was consented. He will continue the previously prescribed Augmentin and follow-up with ENT as previously planned. HPI General Mode of arrival: ambulatory . Date/Time Provider Initiated Documentation: 01/16/21 17:33 . Limitations to Documentation: no limitations . Information obtained by: patient . History of Present Illness 55 year old M presents to the emergency department with the chief complaint of Left ear pain, described as severe, Quality is described as dull and constant, and is localized to the head and left. Patient reports no radiation. Patient started experiencing this hour(s) and it has been constant. No relieving factors improve symptom(s), No exacerbating factors reported . Patient notes denies fever/chills, headaches and nausea/vomiting. Patient did receive the following treatments prior to arrival, other (Tylenol) Related Data Home Medications Medication Instructions Recorded Confirmed acetaminophen 1,000 mg PO PRN PRN 12/29/20 01/16/21 metformin 1,000 mg PO BID 12/29/20 01/16/21 prednisone 20 mg PO DAILY 12/29/20 01/16/21 simvastatin 5 mg PO DAILY 12/29/20 01/16/21 amoxicillin-pot clavulanate 1 tab PO BID 10 Days #20 tab 01/16/21 01/16/21 fluticasone propion-salmeterol 1 inh INHALATION BID 01/16/21 01/16/21 [Advair Diskus] Previous Rx's Medication Instructions Recorded amoxicillin-pot clavulanate 1 tab PO BID 10 Days #20 tab 01/16/21 Allergies Allergy/AdvReac Type Severity Reaction Status Date / Time chocolate flavor Allergy Swelling/Ed Unverified 01/16/21 11:17 janel fentanyl AdvReac prolonged Unverified 01/16/21 11:20 low Sao2 General Stated Complaint: EarProblem BAO: 3 Review of Systems Narrative: No new injury. He has otherwise been well. PFSH All Active Problems (Updated 01/16/21 @ 18:28 by Agustin Medina MD) Acute suppurative otitis media of left ear with spontaneous rupture of tympanic membrane (Acute) Chronic adrenal insufficiency (Chronic) Pneumonia due to COVID-19 virus (Acute) COVID-19 (Acute) Multifocal pneumonia (Acute) On supplemental oxygen therapy (Acute) Medical History Obesity (BMI 30-39.9) Polymyalgia rheumatica Steroid dependent Type 2 diabetes mellitus Surgical History S/P right rotator cuff repair S/P tonsillectomy Social History Smoking/Tobacco Use Status: Current every day Tobacco Type: smokeless tobacco Smoking risk assessment performed?: Yes Alcohol Intake: current Alcohol Intake frequency: holidays/special occasions only Drug use: Rarely Substance use type: marijuana Do you feel safe at home: Yes Do you feel safe in your relationship?: Yes Exam Narrative Exam Narrative: GEN: awake, alert, oriented 3. Pleasant, well groomed, interactive. HEAD: Normocephalic, atraumatic she is funny ENT: Mucous membranes moist, oropharynx unremarkable, ruptured and erythematous left tympanic membrane, right tympanic membrane unremarkable EYES: PERRL, EOMI NECK: Full ROM, no NELLI, no menigismus CHEST/RESP: No respiratory distress Neuro: Grossly normal neurologic exam, conversant, interactive. Psych: Speech fluent, thoughts congruent, affect normal Course Vital Signs Vital signs: Vital Signs Temperature 36.4 C L 01/16/21 17:29 Pulse Oximetry 93 01/16/21 17:29 Temperature 36.4 C L 01/16/21 17:29 Temperature Source Tympanic 01/16/21 17:29 Blood Pressure Position Sitting 01/16/21 17:29 Pulse Oximetry 93 01/16/21 17:29 Oxygen Delivery Method Room Air 01/16/21 17:29 Oxygen Flow Rate 0 01/16/21 17:29 Pain Level 8 01/16/21 17:40
[2021-01-16 18:07] VITALS: BP 119/76; PULSE 72; RESP 16; O2SAT 95
--- NOTE | 2021-01-16 18:10 | NUR.NOTE ---
pt had a vagal response after the pain shot and was monitored for 15 min Nursing Note:
== END 2021-01-16 18:23 | disposition home or self-care (01) ==
PROVIDERS: Emergency Provider Emergency Medicine; PCP Internal Medicine Hematology & Oncology
DX: H66.012 Acute suppurative otitis media with spontaneous rupture of ear drum, left ear (principal)
CPT/HCPCS: 96372; 99284; 99283

== ENCOUNTER 2024-12-15 16:15 | Emergency (ER) | payer OTHER, SELFPAY ==
--- NOTE | 2024-12-15 16:20 | W.ED.GENAD ---
Discharge Plan Disposition Patient Disposition: Home Condition: Good Discharge Details Clinical Impression: Dental abscess Primary Care Provider: Heri Woodward ED Provider: Isabel Velazquez Home Meds and New Rx's Prescriptions: New amoxicillin-pot clavulanate 875-125 mg tablet 1 tab PO BID Qty: 14 0RF No Action acetaminophen 500 mg Tablet 1,000 mg PO PRN PRN simvastatin 5 mg Tablet 5 mg PO DAILY metformin 1,000 mg Tablet 1,000 mg PO BID lisinopril 10 mg tablet 10 mg PO DAILY Jardiance 10 mg tablet 10 mg PO DAILY Discharge Instructions Instructions: Tooth Abscess ED Additional Instructions: I encouraged you to call an oral surgeon to arrange for a tooth extraction as discussed. You are being treated for dental infection, however you do require definitive management with tooth extraction. Please take the full course of antibiotics as prescribed. For discomfort I recommend you stop taking the Tylenol and start taking ibuprofen 600 mg every 8 hours. You may also use warm salt water gargles, clove oil, cool compresses and warm compresses, peppermint or black teabags applied at the gumline for discomfort. Return to emergency care if develop new headaches, fevers associated dental pain, difficulty opening your mouth, difficulty swallowing, swelling inside your mouth/under your tongue, or if you are very worried and need to be rechecked and immediately Stand Alone Forms: Portal Information HPI General Date/Time Provider Initiated Documentation: 12/15/24 16:17. HPI Narrative: Donn is a 59-year-old male presents to the emergency department today for evaluation of dental pain with multiple broken teeth. He reports that he has a history of teeth breaking, says usually 1 month breaks. He has been referred to oral surgery, but has not been able to follow-up because of his busy work schedule. He reports that he developed pain to his left lower molar 4 days ago, has been using warm salt water rinses and Tylenol for pain control. Reports that the pain has persisted despite this treatment. He does admit to pus draining into his mouth when he pushes on the tooth and feeling like the tooth is loose. He denies fever/chills, headaches, vision changes, neck pain, difficulty moving his head, difficulty opening his mouth, difficulty swallowing, change in p.o. intake (although he is eating only soft foods and chewing on the other side of his mouth) Past medical history is significant for HTN (managed with lisinopril), HLD (on atorvastatin), T2DM (managed with metformin and Jardiance), obesity. Last A1c was 9. He is a former chewing tobacco user, currently uses nicotine pouches. Related Data Home Medications Medication Instructions Recorded Confirmed acetaminophen 500 mg tablet 1,000 mg PO PRN PRN 12/29/20 12/15/24 metformin 1,000 mg tablet 1,000 mg PO BID 12/29/20 12/15/24 simvastatin 5 mg tablet 5 mg PO DAILY 12/29/20 12/15/24 amoxicillin 875 mg-potassium 1 tab PO BID #14 tabs 12/15/24 clavulanate 125 mg tablet empagliflozin 10 mg tablet 10 mg PO DAILY 12/15/24 12/15/24 (Jardiance) lisinopril 10 mg tablet 10 mg PO DAILY 12/15/24 12/15/24 Previous Rx's Medication Instructions Recorded amoxicillin 875 mg-potassium 1 tab PO BID #14 tabs 12/15/24 clavulanate 125 mg tablet Allergies Allergy/AdvReac Type Severity Reaction Status Date / Time chocolate flavor Allergy Swelling/Ed Unverified 12/15/24 16:24 janel fentanyl AdvReac prolonged Unverified 12/15/24 16:24 low Sao2 General BAO: 3 Exam Const General: cooperative, healthy appearing, comfortable, no acute distress and well developed Nutritional Appearance: average body habitus Orientation: alert and oriented x3 HENMT Head: normal to inspection Ears: hearing grossly normal bilaterally General nose exam: external nose normal Face and sinus: normal facial exam Mouth: oral mucosae normal, lip normal, tongue normal, oropharynx normal and moist mucous membranes Teeth and gingiva: poor dentition (Multiple broken teeth, significant pain with palpation of tooth #19) Neck Neck: normal visual inspection, full ROM, no lymphadenopathy and no meningeal signs Resp Effort & Inspection: normal respiratory effort and able to speak in complete sentences Skin General skin exam: no rashes or lesions noted Neuro General: patient alert, patient oriented x3, tone normal, moves all extremities and no meningeal signs Cranial Nerves: facial strength normal and able to rotate head bilaterally Cognition: normal cognition Speech: speech normal Medical Decision Making Donn is a 59year old MALE who presents to the emergency department for evaluation of dental pain, specifically at tooth #19, where he has had a recent broken tooth and pus draining/loose tooth. Physical exam remarkable for extensive dental decay and multiple broken teeth. No obvious erythema along gumline or abscesses draining to the outside. No swelling under tongue concerning for Kimo's angina. No trismus. Clear voice. Full painless range of motion of neck. No cervical or submandibular lymphadenopathy. History and presentation consistent with acute dental infection, likely abscess. No red flags concerning for deep space infection or airway compromise requiring diagnostic imaging at this time. Patient does not meet SIRS criteria. While in the emergency dept patient received first dose of Augmentin, as well as a dose for the morning. Prescription for 7-day course sent to pharmacy. Advised on symptomatic management and avoidance of overuse of Tylenol Reviewed discharge instructions with patient, including symptomatic management, importance of follow up with oral surgery for definitive management, importance of management of diabetes with PCP, and red flags indicating need for return to emergency care. Pt voices agreement with plan of care [facility] All Active Problems (Updated 12/15/24 @ 16:44 by Isabel Feliz) Dental abscess (Acute) Acute suppurative otitis media of left ear with spontaneous rupture of tympanic membrane (Acute) Chronic adrenal insufficiency (Chronic) Pneumonia due to COVID-19 virus (Acute) COVID-19 (Acute) Multifocal pneumonia (Acute) On supplemental oxygen therapy (Acute) Medical History Obesity (BMI 30-39.9) Polymyalgia rheumatica Steroid dependent Type 2 diabetes mellitus Surgical History S/P right rotator cuff repair S/P tonsillectomy Social History Smoking/Tobacco Use Status: Current every day Tobacco Type: smokeless tobacco Smoking risk assessment performed?: Yes Alcohol Intake: current Alcohol Intake frequency: holidays/special occasions only Drug use: Rarely Substance use type: marijuana Do you feel safe at home: Yes Do you feel safe in your relationship?: Yes
[2024-12-15 16:22] VITALS: BP 148/71; PULSE 83; RESP 18; TEMP 36.9; O2SAT 95
[2024-12-15 16:26] VITALS: BP 148/71; PULSE 83; RESP 18; TEMP 36.9; O2SAT 95
[2024-12-15] MEDS: Ibuprofen 600 MG TAB PO (17:00)
[2024-12-15] MEDS: Amox. 875/Clav. 125, 2 TABS/BTL 1 TAB PO (17:00)
== END 2024-12-15 17:49 | disposition home or self-care (01) ==
LOC: ER 17:02
PROVIDERS: Emergency Provider Nurse Practitioner Family; PCP Internal Medicine Hematology & Oncology
DX: R68.84 Jaw pain (principal); K04.7 Periapical abscess without sinus
CPT/HCPCS: 99283 ×2